=== PATIENT | male | born 1985 | race Caucasian/White ===

== ENCOUNTER 2018-09-10 07:00 | Emergency (ER) | payer OTHER ==
[~2018-09-10] VITALS: Ht 175.3 cm; Wt 84.1 kg
[2018-09-10] MEDS ORDERED: IBUP80TA PO (07:05)
[2018-09-10] MEDS ORDERED: ACETAMINOPHEN 325 MG TAB PO ONE (07:30)
--- NOTE | 2018-09-10 07:58 | REPVR ---
EXAM: CT Lumbar Spine Without Contrast EXAM DATE/TIME: 09/10/2018 7:37 AM CLINICAL HISTORY: 33 years old, male; Pain; Low back pain; Additional info: Heavy lifting; Severe pain TECHNIQUE: Axial computed tomography images of the lumbar spine without intravenous contrast. All CT scans at this facility use at least one of these dose optimization techniques: automated exposure control; mA and/or kV adjustment per patient size (includes targeted exams where dose is matched to clinical indication); or iterative reconstruction. Coronal and sagittal reformatted images were created and reviewed. COMPARISON: No relevant prior studies available. FINDINGS: Vertebrae: There is 1.2 cm sclerotic lesion in L3 vertebral body on the right likely bony island. There is mild bilateral L5 S1 facet arthrosis. Discs/Spinal canal/Neural foramina: There is mild diffuse central disc bulge at L4-L5 and L5 S1. Soft tissues: Unremarkable. IMPRESSION: 1. No fracture or subluxation. 2. Mild diffuse disc bulge at L4-L5 and L5 S1 indenting the thecal sac. Mild bilateral L5 S1 facet arthrosis Electronically signed by: Ga Johnson On 09/10/2018 07:58:18 AM
[2018-09-10] MEDS ORDERED: ACET30TAB PO (08:29)
[2018-09-10 08:33] VITALS: BP 137/77
== END 2018-09-10 08:40 | disposition home or self-care (01) ==
LOC: M ED 07:00
DX: M54.9 Dorsalgia, unspecified (principal)

== ENCOUNTER 2023-03-12 11:37 | Emergency (ER) | payer OTHER ==
[~2023-03-12] VITALS: Ht 175.3 cm; Wt 96.2 kg
[2023-03-12 11:37] VITALS: BP 163/87; TEMP 99; O2SAT 97
[~2023-03-12 11:37] MED LIST: ACET-716 PO; IBUP80TA PO
[2023-03-12 13:48] LABS: BASO # 0.1 10^3/uL (0.0-0.2); BASO % 0.6 % (0.0-1.0); EOS # 0.3 10^3/uL (0.0-0.5); EOS % 3.7 % (0.0-3.0); HEMATOCRIT 43.8 % (42.0-52.0); HEMOGLOBIN 14.8 g/dl (13.5-17.5); LYMPH # 2.3 10^3/uL (1.5-5.0); LYMPH % 28.1 % (24.0-44.0); MEAN CORPUSCULAR HEMOGLOBIN 28.8 pg (27.0-33.0); MEAN CORPUSCULAR HGB CONC 33.8 g/dl (32.0-36.5); MEAN CORPUSCULAR VOLUME 85.4 fl (80.0-96.0); MONO # 0.8 10^3/uL (0.0-0.8); MONO % 10.3 % (2.0-8.0); NEUTROPHILS # 4.6 10^3/uL (1.5-8.5); NEUTROPHILS % 57.1 % (36.0-66.0); PLATELET COUNT, AUTOMATED 253 10^3/uL (150-450); RED BLOOD COUNT 5.13 10^6/uL (4.30-6.10)
[2023-03-12 13:54] LABS: ERYTHROCYTE SEDIMENTATION RATE 3 mm/hr (0-15)
[2023-03-12 14:19] LABS: C REACTIVE PROTEIN QUANTITATIV < 0.40 MG/DL (<1.0)
[2023-03-12 14:20] LABS: ALKALINE PHOSPHATASE 90 U/L (46-116); ALT/SGPT 20 U/L (7.0-40); AST/SGOT 10 U/L (<34); BILIRUBIN,DIRECT 0.2 MG/DL (<0.4); BILIRUBIN,TOTAL 0.4 MG/DL (0.3-1.2); BLOOD UREA NITROGEN 14 MG/DL (9-23); CALCIUM LEVEL 9.4 MG/DL (8.5-10.1); CARBON DIOXIDE LEVEL 30 MMOL/L (20-31); CHLORIDE LEVEL 106 MMOL/L (98-107); CREATININE FOR GFR 0.89 MG/DL (0.70-1.30); GLOMERULAR FILTRATION RATE > 60.0 (>60); GLUCOSE, FASTING 92 MG/DL (60-100); POTASSIUM SERUM 4.7 MMOL/L (3.5-5.1); SODIUM LEVEL 141 MMOL/L (136-145); TOTAL PROTEIN 6.5 G/DL (5.7-8.2)
[2023-03-12 15:50] LABS: GC DNA AMPLIFICATION NEGATIVE (NEGATIVE)
== END 2023-03-12 16:00 | disposition home or self-care (01) ==
LOC: M ED 11:37
DX: R22.41 Localized swelling, mass and lump, right lower limb (principal); I83.891 Varicose veins of right lower extremity with other complications; Z53.9 Procedure and treatment not carried out, unspecified reason

== ENCOUNTER → 2025-02-25 | Outpatient (CLI) | payer OTHER | LOC: M RAD 16:42 | PROVIDERS: ATTEND Physician Assistant Medical | DX: M25.572 Pain in left ankle and joints of left foot (principal); M25.521 Pain in right elbow ==

== ENCOUNTER 2025-06-21 19:22 | Emergency (ER) | payer OTHER ==
[2025-06-21] MEDS: TETANUS/DIPHTH/ACEL. PERTUSSIS 0.5 ML SYR IM ONE (19:40)
[2025-06-21] MEDS: NS (Normal Saline) 0.9% 1,000 ML IV SCH (19:50)
[2025-06-21] MEDS: ROCURONIUM BROMIDE 50MG/5ML VIAL IV SCH (19:58)
[2025-06-21 20:14] LABS: BASO # 0.1 10^3/uL (0.0-0.2); BASO % 0.6 % (0.0-1.0); EOS # 0.3 10^3/uL (0.0-0.5); EOS % 2.2 % (0.0-3.0); LYMPH # 4.2 10^3/uL (1.5-5.0); LYMPH % 37.1 % (24.0-44.0); MONO # 1.0 10^3/uL (0.0-0.8); MONO % 9.2 % (2.0-8.0); NEUTROPHILS # 5.7 10^3/uL (1.5-8.5); NEUTROPHILS % 50.7 % (36.0-66.0); PLATELET COUNT, AUTOMATED 308 10^3/uL (150-450)
[2025-06-21] MEDS ORDERED: FENTANYL DRIP LOCK BOX KEY 1 EACH XX PRN (20:20)
[2025-06-21 20:24] LABS: ABG BASE EXCESS -2.7 (-2.0-2.0); ABG HCO3 22.6 MMOL/L (22.0-26.0); ABG O2 SATURATION 99.8 % (95.0-99.0); ABG PARTIAL PRESSURE CO2 41.2 mmHg (35.0-45.0); ABG PARTIAL PRESSURE O2 390.3 mmHg (75.0-100.0); ABG STANDARD HCO3 22.3 MMOL/L. (22.0-26.0); ABG TOTAL CO2 23.9 MMOL/L (22.0-29.0); ABG pH (ARTERIAL) 7.357 UNITS (7.350-7.450)
[2025-06-21 20:30] LABS: ETHYL ALCOHOL (ETHANOL) < 0.003 % (0.000-0.010)
[2025-06-21 20:32] LABS: ALT/SGPT 15 U/L (7.0-40); AST/SGOT 17 U/L (<34)
[2025-06-21] MEDS: fentaNYL CITRATE/NaCl 1,000 MCG in IV 1 EA IV SCH (20:33)
[2025-06-21 20:46] LABS: INR 0.92
[2025-06-21 20:54] LABS: BARBITURATES URINE NEGATIVE (NEGATIVE); BENZODIAZEPINES URINE NEGATIVE (NEGATIVE); COCAINE METABOLITE URINE NEGATIVE (NEGATIVE); METHADONE URINE NEGATIVE (NEGATIVE); OPIATES URINE NEGATIVE (NEGATIVE); PHENCYCLIDINE URINE NEGATIVE (NEGATIVE)
[2025-06-21 20:56] LABS: AMPHETAMINES LEVEL URINE POSITIVE (NEGATIVE); CANNABINOIDS URINE POSITIVE (NEGATIVE)
[2025-06-21] MEDS ORDERED: MIDAZOLAM INJ 2 MG/2 ML VIAL As Ordered ONE (20:58)
[2025-06-21] MEDS: MIDAZOLAM INJ 2 MG/2 ML VIAL IV ONE (21:00)
[2025-06-21] MEDS: GLYCOPYRROLATE INJ 0.2 MG/ML 2 ML VIAL NEB SCH (21:03)
[2025-06-21] MEDS: MIDAZOLAM INJ 2 MG/2 ML VIAL IV STA (21:06)
[2025-06-21] MEDS: MIDAZOLAM 100MG/100ML-0.9%NACL 100 MG in IV 1 EA IV SCH (21:10)
[2025-06-21 21:30] VITALS: BP 134/66
[2025-06-21 21:49] VITALS: O2SAT 100
[2025-06-22] MEDS: ETOMIDATE 20 MG/10 ML VIAL IV STA (04:56)
== END 2025-06-22 00:40 | disposition short-term general hospital (02) ==
LOC: M ED 19:22
DX: T20.29XA Burn of second degree of multiple sites of head, face, and neck, initial encounter (principal); T22.292A Burn of second degree of multiple sites of left shoulder and upper limb, except wrist and hand, initial encounter; T22.291A Burn of second degree of multiple sites of right shoulder and upper limb, except wrist and hand, initial encounter; T23.292A Burn of second degree of multiple sites of left wrist and hand, initial encounter; T23.291A Burn of second degree of multiple sites of right wrist and hand, initial encounter; T20.27XA Burn of second degree of neck, initial encounter; T59.811A Toxic effect of smoke, accidental (unintentional), initial encounter; X19.XXXA Contact with other heat and hot substances, initial encounter; Y92.009 Unspecified place in unspecified non-institutional (private) residence as the place of occurrence of the external cause; Y93.G3 Activity, cooking and baking; Y99.9 Unspecified external cause status
CPT/HCPCS: 31500; 36600; 51702; 71045; 80047; 80076; 80307; 82077; 82150; 82375; 82803; 83605; 83690; 85025; 85610; 85730; 86850; 86900; 86901; 90471; 90715; 93041; 94640; 94760; 96361; 96365; 96375; 99291; J1596; J2250; J2251; J3010